=== PATIENT | female | born 1945 | race Native Hawaiian/Other Pacific Islander ===

== ENCOUNTER 2016-10-29 09:17 | Outpatient (CLI) | payer OTHER ==
[~2016-10-29 09:17] MED LIST: ACET5TAB36 PO; ACYCLOVIR800 MG OR; ACYCLOVIR800 MG PO; FOLIC ACID800 MCG PO; FORTEO SC; GABA100C2 PO; HYDROXYCHLOR200 MG OR; HYDROXYCHLOR200 MG PO; LEVOTHROID75 MCG PO; LIDOPATCH TOP; METO50TA27 PO; MILLIPRED5 MG OR; MULTIVITAMI2 PO; OMEP20CA PO; PRED10TA27 PO; VIT B12 ER1000 MCG PO; Z-PAK PO
== END 2016-10-29 10:17 | disposition home or self-care (01) ==
LOC: RAD 09:17
DX: J40 Bronchitis, not specified as acute or chronic (principal)

== ENCOUNTER 2016-11-02 11:52 | Observation (INO) | payer OTHER ==
[~2016-11-02] VITALS: Ht 149.9 cm; Wt 45.8 kg
[2016-11-02 12:30] VITALS: BP 124/79; TEMP 98.6; Ht 149.9 cm; Wt 45.8 kg
[2016-11-02 13:46] LABS: PLATELET COUNT 145 K/uL (152-353)
[2016-11-02 14:36] LABS: POTASSIUM 3.3 mmol/L (3.6-5.2); SODIUM 131 mmol/L (136-145)
[2016-11-02 16:00] VITALS: BP 122/69; TEMP 98
[2016-11-02] MEDS ORDERED: SPIRIVA IN (19:03)
[2016-11-02 20:00] VITALS: BP 121/68; TEMP 97.9
[2016-11-03] VITALS: BP 121/72; TEMP 98
[2016-11-03 04:00] VITALS: BP 126/79; TEMP 98.4
[2016-11-03 08:00] VITALS: BP 128/81; TEMP 98.6
[2016-11-03 09:21] LABS: SODIUM 131 mmol/L (136-145)
[2016-11-03 09:48] LABS: PLATELET COUNT 164 K/uL (152-353)
[2016-11-03 12:00] VITALS: BP 120/76; TEMP 97.6
== END 2016-11-03 16:10 | disposition home or self-care (01) ==
LOC: MED/SURG 11:52
PROVIDERS: Emergency Medicine; ADMIT Internal Medicine
DX: J44.1 Chronic obstructive pulmonary disease with (acute) exacerbation (principal); I10 Essential (primary) hypertension; K21.9 Gastro-esophageal reflux disease without esophagitis
CPT/HCPCS: 36591; 80053; 81000; 82550; 83735; 84443; 84484; 85007; 85027; 93005; 94640; 94664; 94760; 99220; G0378; G0379; J2920; J2930; J3490

== ENCOUNTER 2016-12-15 08:34 | Outpatient (CLI) | payer OTHER ==
[~2016-12-15 08:34] MED LIST changes: +SPIRIVA IN
== END 2016-12-15 19:09 | disposition home or self-care (01) ==
LOC: RESP 08:34 → CT 08:34
DX: J84.10 Pulmonary fibrosis, unspecified (principal); R06.00 Dyspnea, unspecified; Z28.21 Immunization not carried out because of patient refusal
CPT/HCPCS: 36415; 36600; 82805; 83516; 86039; 86225; 86235; 86255; 86430

== ENCOUNTER 2017-01-20 12:41 | Outpatient (CLI) | payer OTHER | END 2017-01-20 13:45 | disposition home or self-care (01) | LOC: RESP 12:41 | DX: R06.09 Other forms of dyspnea (principal) | CPT/HCPCS: 93306 ==

== ENCOUNTER 2017-02-08 11:30 | Outpatient (CLI) | payer OTHER | END 2017-02-08 12:30 | disposition home or self-care (01) | LOC: RAD 11:30 | DX: M54.2 Cervicalgia (principal) ==

== ENCOUNTER 2017-04-19 13:36 | Outpatient (CLI) | payer OTHER | END 2017-04-19 19:03 | disposition home or self-care (01) | LOC: RAD 13:36 | DX: M54.89 Other dorsalgia (principal) ==

== ENCOUNTER 2019-02-13 15:48 | Outpatient (CLI) | payer OTHER ==
[2019-02-13 16:16] LABS: PLATELET COUNT 148 K/uL (152-353)
[2019-02-13 16:56] LABS: POTASSIUM 4.1 mmol/L (3.6-5.2)
== END 2019-02-13 20:03 | disposition home or self-care (01) ==
LOC: LABW 15:48
PROVIDERS: Physician Assistant
DX: D72.819 Decreased white blood cell count, unspecified (principal); J44.1 Chronic obstructive pulmonary disease with (acute) exacerbation; E46 Unspecified protein-calorie malnutrition; E86.0 Dehydration; E55.9 Vitamin D deficiency, unspecified
CPT/HCPCS: 36415; 80053; 81000; 82306; 82607; 83735; 84443; 85027

== ENCOUNTER 2019-02-22 14:35 | Outpatient (CLI) | payer OTHER | END 2019-02-22 23:51 | disposition home or self-care (01) | LOC: CT 14:35 → RAD 14:35 → CT 15:00 | DX: M54.2 Cervicalgia (principal); G44.201 Tension-type headache, unspecified, intractable ==

== ENCOUNTER 2019-04-17 15:09 | Outpatient (CLI) | payer OTHER | END 2019-04-17 23:21 | disposition home or self-care (01) | LOC: RAD 15:09 | DX: S32.000D Wedge compression fracture of unspecified lumbar vertebra, subsequent encounter for fracture with routine healing (principal) ==

== ENCOUNTER 2019-05-30 09:43 | Outpatient (CLI) | payer OTHER | END 2019-05-30 19:10 | disposition home or self-care (01) | LOC: RAD 09:43 | DX: M54.5 Low back pain (principal); M79.602 Pain in left arm ==

== ENCOUNTER 2019-06-11 12:50 | Outpatient (CLI) | payer OTHER ==
[~2019-06-11] VITALS: Ht 152.4 cm; Wt 88.0 kg
== END 2019-06-11 14:30 | disposition home or self-care (01) ==
LOC: INF 12:50
DX: J44.1 Chronic obstructive pulmonary disease with (acute) exacerbation (principal)
CPT/HCPCS: 96365; 96374; 96375; J0696; J2920

== ENCOUNTER 2019-08-30 09:15 | Outpatient (CLI) | payer OTHER ==
[2019-08-30 09:53] LABS: POTASSIUM 3.7 mmol/L (3.6-5.2)
[2019-08-30 10:05] LABS: PLATELET COUNT 249 K/uL (152-353)
== END 2019-08-30 20:18 | disposition home or self-care (01) ==
LOC: CT 09:15
PROVIDERS: Internal Medicine
DX: R05 Cough (principal); R63.4 Abnormal weight loss
CPT/HCPCS: 36415; 80053; 81000; 84134; 84439; 84443; 85027; Q9963